=== PATIENT | female | born 1945 | race Caucasian/White ===

== ENCOUNTER 2020-11-02 12:37 | Emergency (ER) | payer OTHER ==
[~2020-11-02] VITALS: Ht 152.4 cm; Wt 61.2 kg
[2020-11-02 12:49] VITALS: Ht 152.4 cm; Wt 61.2 kg
[2020-11-02 13:32] LABS: BASOPHIL % 0.6 % (0.2-1.3); PLATELET COUNT 318 x10^3mcL (179-408); RED CELL DISTRIBUTION WIDTH 12.3 % (12.3-17.7)
[2020-11-02 13:45] LABS: CARBON DIOXIDE 21.6 mmol/L (21-32); CHLORIDE SERUM 104 mmol/L (98-107); CREATININE SERUM 0.8 mg/dL (0.6-1.0); GLUCOSE SERUM 187 mg/dL (74-106); POTASSIUM SERUM 4.5 mmol/L (3.5-5.1); SODIUM SERUM 140 mmol/L (136-145)
[2020-11-02 13:51] LABS: ALKALINE PHOSPHATASE 69 U/L (46-116); ALT/SGPT 21 U/L (14-59); AST/SGOT 16 U/L (15-37); BILIRUBIN TOTAL 0.3 mg/dL (0.20-1.00); TOTAL PROTEIN, SERUM 7.3 g/dL (6.4-8.2)
[2020-11-02] MEDS ORDERED: PRILOSEC OTC20 M1 PO (14:42)
[2020-11-02] MEDS ORDERED: ZOF4 PO (14:58)
[2020-11-02 15:33] VITALS: BP 135/67
== END 2020-11-02 15:34 | disposition home or self-care (01) ==
LOC: ED 12:37
PROVIDERS: Emergency Medicine
DX: K29.00 Acute gastritis without bleeding (principal); I10 Essential (primary) hypertension; R42 Dizziness and giddiness; R53.1 Weakness
CPT/HCPCS: J2405